=== PATIENT | female | born 1995 | race Caucasian/White ===

== ENCOUNTER 2017-11-22 18:22 | Emergency (ER) | payer OTHER ==
[2017-11-22 18:30] VITALS: PULSE 91; O2SAT 99
[2017-11-22] MEDS ORDERED: TORAdol 30 mg Injection IM ONE (18:56)
--- NOTE | 2017-11-22 18:56 | ERPHSYRPT ---
- History of Present Illness Time Seen by Provider: 11/22/17 18:55 Source: patient, family Exam Limitations: no limitations Patient Subjective Stated Complaint: pt reports pain to upper left arm beginning a few days ago-states that at times pain radiates to upper back and upper chest-states that her bicep feels like a bruis-denies injury or heavy lifting Triage Nursing Assessment: pt pink warm and dry-moving extremity-no bruising noted-radial pulse regular and strong Physician History: The patient is a 24 with her family complaining of pain in her left bicep, left upper back, and left ribs for 3 days. She has no medicines for it except an aspirin. She denies shortness of breath. She denies chest pain. 4 days ago she ran 4 miles for the first time and then the next day it began to hurt. She carries her 3-year-old daughter in her left arm. Her past medical history is significant for possible SVT. Occurred: days ago (3) Method of Injury: unknown Quality: aching Severity of Pain-Max: moderate Severity of Pain-Current: moderate Extremities Pain Location: arm: left Modifying Factors: Improves With: nothing Associated Symptoms: No chest discomfort, No dyspnea, No fever, No jaw pain, No nausea, No sweating, No short of breath, No vomiting Allergies/Adverse Reactions: cefuroxime axetil [From Ceftin] Allergy (Verified 11/22/17 18:25) Home Medications: Amphet Asp/Amphet/D-Amphet [Adderall 30 mg Tablet] 30 mg PO DAILY 11/22/17 [ History] Hx Tetanus, Diphtheria Vaccination/Date Given: No Hx Influenza Vaccination/Date Given: No Hx Pneumococcal Vaccination/Date Given: No Immunizations Up to Date: Yes - Review of Systems Constitutional: No Fever, No Chills Eyes: No Symptoms Ears, Nose, & Throat: No Symptoms Respiratory: No Cough, No Dyspnea Cardiac: No Chest Pain, No Edema, No Syncope Abdominal/Gastrointestinal: No Abdominal Pain, No Nausea, No Vomiting, No Diarrhea Genitourinary Symptoms: No Dysuria Musculoskeletal: Myalgias (left arm) Skin: No Rash Neurological: No Dizziness, No Focal Weakness, No Sensory Changes Psychological: No Symptoms Endocrine: No Symptoms Hematologic/Lymphatic: No Symptoms Immunological/Allergic: No Symptoms All Other Systems: Reviewed and Negative - Past Medical History Pertinent Past Medical History: Yes Cardiac History: Other Other Medical History: TUBAL - HEART MURMUR, 10 sets of tubes in ears , updated 11/27/14 - Past Surgical History Past Surgical History: Yes Other Surgical History: MYRINGOTOMY, tonsilectomy - Social History Smoking Status: Never smoker Exposure to second hand smoke: No Alcohol Use: Socially Drug Use: none Patient Lives Alone: No Significant Family History: no pertinent family hx - Female History Hx Last Menstrual Period: 2 wks ago Hx Now: No - Nursing Vital Signs Nursing Vital Signs: Initial Vital Signs Temperature 98.3 F 11/22/17 18:26 Pulse Rate 91 H 11/22/17 18:26 Respiratory Rate 18 11/22/17 18:26 Blood Pressure 131/81 11/22/17 18:26 O2 Sat by Pulse Oximetry 99 11/22/17 18:26 Pain Scale Pain Intensity 6 - Physical Exam General Appearance: alert Eyes, Ears, Nose, Throat Exam: moist mucous membranes Neck Exam: non-tender, supple Cardiovascular/Respiratory Exam: chest non-tender, normal breath sounds, regular rate/rhythm, no respiratory distress Abdominal Exam: non-tender, No guarding Back Exam: normal inspection, No vertebral tenderness Shoulder Exam: normal ROM, soft tissue tenderness (left trapezius and left bicep ) Elbow/Forearm Exam: normal inspection Wrist Exam: normal inspection Hand Exam: normal inspection Neuro/Tendon Exam: normal sensation, normal motor functions Mental Status Exam: alert, oriented x 3, cooperative Skin Exam: normal color, warm, dry SpO2 Interpretation: normal SpO2: 99 Oxygen Delivery: Room Air - Progress Progress: improved Counseled pt/family regarding: diagnosis - Departure Time of Disposition: 19:04 Departure Disposition: Home Clinical Impression: Myalgia Condition: Stable Critical Care Time: No Referrals: LANA URBINA [Primary Care Provider] - Additional Instructions: You have muscle pain in her left bicep, shoulder, and chest. You were given Toradol 60 mg by IM in the ER. Take Flexeril 10 mg tonight before bedtime. Follow-up with your primary medical doctor next week.
[2017-11-22] MEDS ORDERED: Cyclobenzaprine 10 MG PO ONE (18:57)
[2017-11-22] MEDS ORDERED: Cyclobenzaprine 10 MG ONE (19:04)
[2017-11-22] MEDS ORDERED: TORAdol 30 mg Injection ONE (19:04)
[2017-11-22 19:41] VITALS: BP 137/75
== END 2017-11-22 19:39 | disposition home or self-care (01) ==
LOC: ED 18:22
DX: M79.1 Myalgia (principal); M79.622 Pain in left upper arm; M54.9 Dorsalgia, unspecified; R07.81 Pleurodynia
CPT/HCPCS: 96372; 99284; J1885; A9270-GY

== ENCOUNTER 2018-01-16 23:18 | Emergency (ER) | payer OTHER ==
--- NOTE | 2018-01-17 | ERPHSYRPT ---
- History of Present Illness Time Seen by Provider: 01/16/18 23:59 Source: patient Patient Subjective Stated Complaint: pt states she has been having chest pain for the past week. states pain has increased today. pain was worse in back and was seen at [facility], pain has in chest at this time and pt describes as squeezing Triage Nursing Assessment: pt alert and oriented, answers questions approp. pt arrive per wheelchair, ambulates from wheelchair to stretcher with no difficulty. respirations nonlabored with lungs cta. heart rate 84 on monitor, sinus rhythm. cap refill wnl. Physician History: pt states she has been having chest pain for the past week. states pain has increased today. pain was worse in back and was seen at [facility], pain has in chest at this time and pt describes as squeezing. Patient was at [facility] 6 hrs ago with same complaints. Timing/Duration: week(s) Severity: mild Associated Symptoms: denies symptoms Allergies/Adverse Reactions: cefuroxime axetil [From Ceftin] Allergy (Verified 01/16/18 23:41) Home Medications: Diclofenac Sodium 50 mg [Voltaren 50 mg] 50 mg PO BID 01/16/18 [History] Hx Tetanus, Diphtheria Vaccination/Date Given: Yes Hx Influenza Vaccination/Date Given: No Hx Pneumococcal Vaccination/Date Given: No Immunizations Up to Date: Yes - Review of Systems Constitutional: No Fever, No Chills Eyes: No Symptoms Ears, Nose, & Throat: No Symptoms Respiratory: No Cough, No Dyspnea Cardiac: Chest Pain, No Edema, No Syncope Abdominal/Gastrointestinal: No Abdominal Pain, No Nausea, No Vomiting, No Diarrhea Genitourinary Symptoms: No Dysuria Musculoskeletal: No Back Pain, No Neck Pain Skin: No Rash Neurological: No Dizziness, No Focal Weakness, No Sensory Changes Psychological: No Symptoms Endocrine: No Symptoms All Other Systems: Reviewed and Negative - Past Medical History Pertinent Past Medical History: Yes Cardiac History: Other Other Medical History: TUBAL - HEART MURMUR, 10 sets of tubes in ears , updated 11/27/14 - Past Surgical History Past Surgical History: Yes Other Surgical History: MYRINGOTOMY, tonsilectomy - Social History Smoking Status: Never smoker Exposure to second hand smoke: No Alcohol Use: Socially Drug Use: none Patient Lives Alone: No Significant Family History: no pertinent family hx - Female History Hx Last Menstrual Period: current Hx Now: No - Nursing Vital Signs Nursing Vital Signs: Initial Vital Signs Temperature 97.2 F 01/16/18 23:21 Pulse Rate 74 01/16/18 23:21 Respiratory Rate 18 01/16/18 23:21 Blood Pressure 146/74 01/16/18 23:21 O2 Sat by Pulse Oximetry 99 01/16/18 23:21 Pain Scale Pain Intensity 8 - Physical Exam General Appearance: no apparent distress, alert Eye Exam: PERRL/EOMI, eyes nml inspection Ears, Nose, Throat Exam: normal ENT inspection, TMs normal, pharynx normal, moist mucous membranes Neck Exam: normal inspection, non-tender, supple, full range of motion Respiratory Exam: normal breath sounds, lungs clear, No respiratory distress Cardiovascular Exam: regular rate/rhythm, normal heart sounds, normal peripheral pulses Gastrointestinal/Abdomen Exam: soft, normal bowel sounds, No tenderness, No mass Back Exam: normal inspection, normal range of motion, No CVA tenderness, No vertebral tenderness Extremity Exam: normal inspection, normal range of motion, pelvis stable Neurologic Exam: alert, oriented x 3, cooperative, normal mood/affect, nml cerebellar function, nml station & gait, sensation nml, No motor deficits Skin Exam: normal color, warm, dry, No rash Lymphatic Exam: No adenopathy SpO2: 99 Oxygen Delivery: Room Air - Course Nursing assessment & vital signs reviewed: Yes EKG Interpreted by Me: Sinus Rhythm - Progress Progress: improved Counseled pt/family regarding: lab results (d/w patient (done at [facility])), diagnosis, need for follow-up, rad results - Departure Time of Disposition: 00:19 Departure Disposition: Home Clinical Impression: Chest pain due to psychological stress, Tingling of left upper extremity Condition: Stable Critical Care Time: No Referrals: LANA URBINA [Primary Care Provider] - Instructions: Atypical Chest Pain Additional Instructions: Your chest pain, appears to be secondary to possible pinched nerve in your neck , which should be followed up as an outpatient with further more testing as per , your primary care physician. Followup with your primary care physician for further investigation. Her chest pain, appears to be noncardiac. According to the all laboratory data, which were done at other hospital. Your electrocardiogram at [facility] appears to be within normal range, and appears to be same as was done at another hospital. Followup with your primary care physician on Friday for further testing.
[2018-01-17] MEDS ORDERED: Ativan 2 MG/1 ML VIAL ONE (00:18)
[2018-01-17] MEDS ORDERED: Ativan 2 MG/1 ML VIAL IM ONE (00:18)
[2018-01-17 00:35] VITALS: BP 132/85; PULSE 76; O2SAT 100
== END 2018-01-17 00:36 | disposition home or self-care (01) ==
LOC: ED 23:18
DX: F43.9 Reaction to severe stress, unspecified (principal); R07.9 Chest pain, unspecified; R20.2 Paresthesia of skin
CPT/HCPCS: 96372; 99283; J2060

== ENCOUNTER 2021-08-03 22:16 | Emergency (ER) | payer OTHER ==
[2021-08-03 22:49] VITALS: O2SAT 99
[2021-08-03 23:04] LABS: Absolute Neutrophil Ct (ANC) 5.67 (1.4-6.9); Basophil (Absolute #) 0.03 (0-0.4); Eosinophil % 2.6 % (0.00-5.0); Eosinophil (Absolute #) 0.22 (0-0.5); Hematocrit 36.5 % (35-47); Hemoglobin 12.4 gm/dl (12.0-16.0); Lymphocyte (Absolute #) 1.97 (1.0-4.6); Mean Cell Volume 95.3 fl (78-100); Mean Corpuscular Hemoglobin 32.4 pg (26-32); Monocyte (Absolute #) 0.68 (0.0-1.3); Monocytes % 7.9 % (0.0-12.0); Neutrophil % 66.1 % (36.0-66.0); Platelet Count 197 K/mm3 (150-450); Red Blood Count 3.83 M/mm3 (4.1-5.4); Red Cell Distribution Width 12.2 % (11.5-14.0); White Blood Count 8.6 K/mm3 (4.0-10.5)
[2021-08-03 23:06] LABS: INR 1.05 (0.8-3.0); PROTIME 12.4 SECONDS (9.4-12.5)
--- NOTE | 2021-08-03 23:17 | ERPHSYRPT ---
- History of Present Illness Historian: patient Exam Limitations: no limitations Patient Subjective Stated Complaint: pt states she has been having palpitations with some chest pressure all day. has had multiple episodes where she feels like she needs to bear down to get her heart back in rhythm. Triage Nursing Assessment: pt alert and oriented, answers questions approp. pt ambulatory with steady gait noted. skin warm and dry. respirations nonlabored with lungs cta. heart rate 74 on monitor, sinus rhythm. peripheral pulse wnl. 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 Pt has a h/o palatations since the age of 10 and has had a cardiac w/u in the past including holter/echo. She was taking Lopressor until 2019. Pt states that she was mildly dyspneic w mild mid-sternal chest pain. She denies N/V/diaphoresis. Pt denies HTN/DM/tobacco use/meth-cocaine use Timing/Duration: other (12:00) Activities at Onset: other (Cutting hair) Location: substernal Chest Pain Radiation: no radiation Severity of Pain-Max: mild Severity of Pain-Current: mild Modifying Factors: Improves With: nothing Associated Symptoms: shortness of breath, No nausea, No vomiting, No palpitations, No heartburn, No abdominal pain, No cough, No hurts to breathe, No diaphoresis, No chills, No fever, No fatigue, No weakness, No swelling/lump in chest, No syncope, No rash, No headache, No dizziness, No edema, No back pain Prior Chest Pain/Cardiac Workup: echocardiography (Holter monitor) Nitro Today/Relief: no nitro taken today Aspirin Treatment Today: no aspirin today Allergies/Adverse Reactions: cefuroxime axetil [From Ceftin] Allergy (Verified 08/04/21 00:29) Home Medications: No Reportable Medications [No Reported Medications] 08/04/21 [History] Hx Tetanus, Diphtheria Vaccination/Date Given: Yes Hx Influenza Vaccination/Date Given: No Hx Pneumococcal Vaccination/Date Given: No Immunizations Up to Date: Yes Travel Risk - International Travel Have you traveled outside of the country in past 3 weeks: No - Coronavirus Screening Are you exhibiting any of the following symptoms?: No Close contact with a COVID-19 positive Pt in past 14-21 Days: No - Vaccine Status Have you recieved a Covid-19 vaccination: No - Review of Systems Constitutional: No Symptoms Eyes: No Symptoms Ears, Nose, & Throat: No Symptoms Respiratory: No Symptoms, Dyspnea Cardiac: No Symptoms, Chest Pain, Palpitations Abdominal/Gastrointestinal: No Symptoms Genitourinary Symptoms: No Symptoms Musculoskeletal: No Symptoms Skin: No Symptoms Neurological: No Symptoms Psychological: No Symptoms Endocrine: No Symptoms Hematologic/Lymphatic: No Symptoms Immunological/Allergic: No Symptoms - Past Medical History Pertinent Past Medical History: Yes Neurological History: No Pertinent History ENT History: No Pertinent History Cardiac History: Arrhythmia, High Cholesterol, Other Respiratory History: No Pertinent History Endocrine Medical History: No Pertinent History Musculoskeletal History: No Pertinent History GI Medical History: No Pertinent History History: No Pertinent History Psycho-Social History: No Pertinent History Female Reproductive Disorders: No Pertinent History Other Medical History: TUBAL - HEART MURMUR, 10 sets of tubes in ears - Past Surgical History Past Surgical History: Yes Neuro Surgical History: No Pertinent History Cardiac: No Pertinent History Respiratory: No Pertinent History Gastrointestinal: No Pertinent History Genitourinary: No Pertinent History Musculoskeletal: No Pertinent History Female Surgical History: No Pertinent History Other Surgical History: MYRINGOTOMY, tonsilectomy - Social History Smoking Status: Never smoker Exposure to second hand smoke: No Alcohol Use: Socially Drug Use: none Patient Lives Alone: No Significant Family History: no pertinent family hx - Female History Hx Last Menstrual Period: minimal with iud Hx Now: No - Nursing Vital Signs Nursing Vital Signs: Initial Vital Signs Temperature 97.4 F 08/03/21 22:26 Pulse Rate 73 08/03/21 22:26 Respiratory Rate 16 08/03/21 22:26 Blood Pressure 124/85 08/03/21 22:26 O2 Sat by Pulse Oximetry 99 08/03/21 22:26 Pain Scale Pain Intensity 0 - Physical Exam General Appearance: no apparent distress, anxiety Eye Exam: PERRL/EOMI, eyes nml inspection Ears, Nose, Throat Exam: normal ENT inspection, TMs normal, pharynx normal, moist mucous membranes Neck Exam: normal inspection, non-tender, supple, full range of motion, No meningismus, No mass, No Brudzinski, No Kernig's, No carotid bruit Respiratory Exam: normal breath sounds, lungs clear, airway intact Cardiovascular Exam: regular rate/rhythm, normal heart sounds, normal peripheral pulses, capillary refill <2 sec, No murmur Gastrointestinal/Abdomen Exam: soft, normal bowel sounds, No tenderness Back Exam: normal inspection, normal range of motion, No CVA tenderness, No vertebral tenderness Extremity Exam: normal inspection, normal range of motion Neurologic Exam: alert, oriented x 3, cooperative, surgical elastic knitter II-XII nml as tested, normal mood/affect, nml cerebellar function, nml station & gait, sensation nml, No motor deficits, No sensory deficit Skin Exam: normal color, warm, dry Lymphatic Exam: No adenopathy SpO2 Interpretation: normal SpO2: 99 O2 Delivery: Room Air - Course EKG Interpreted by Me: RATE (Sinus chris/Rate 58/Normal QT-QTc/No acute ST-Twave changes) - Radiology Exams Chest X-ray Interpretation: Interpreted by me (CXR NAD) Ordered Tests: Active Orders 24 hr Category Date Time Status Supplier Quality STAT Care 08/03/21 22:56 Completed EKG-ER Only STAT Care 08/03/21 22:56 Completed IV Insertion STAT Care 08/03/21 22:43 Completed CHEST 1 VIEW (PORTABLE) Stat Exams 08/03/21 23:53 Taken CBC W DIFF Stat Lab 08/03/21 22:56 Completed CMP Stat Lab 08/03/21 22:56 Completed PROTIME WITH INR Stat Lab 08/03/21 22:56 Completed PTT Stat Lab 08/03/21 22:56 Completed T4 (Thyroxine) Stat Lab 08/03/21 22:56 Completed TROPONIN Stat Lab 08/03/21 22:56 Completed TSH, 3RD Generation Stat Lab 08/03/21 22:56 Completed Holter Monitor ONCE RT 08/04/21 01:11 Completed Lab/Rad Data: Laboratory Result Diagrams 08/03/21 22:56 08/03/21 22:56 Laboratory Results 08/03/21 08/03/21 08/03/21 Range/Units 22:56 22:56 22:56 WBC 8.6 (4.0-10.5) K/mm3 RBC 3.83 L (4.1-5.4) M/mm3 Hgb 12.4 (12.0-16.0) gm/dl Hct 36.5 (35-47) % MCV 95.3 (78-100) fl MCH 32.4 H (26-32) pg MCHC 34.0 (32-36) g/dl RDW 12.2 (11.5-14.0) % Plt Count 197 (150-450) K/mm3 MPV 11.0 (7.5-11.0) fl Gran % 66.1 H (36.0-66.0) % Eos # (Auto) 0.22 (0-0.5) Absolute Lymphs (auto) 1.97 (1.0-4.6) Absolute Monos (auto) 0.68 (0.0-1.3) Lymphocytes % 23.0 L (24.0-44.0) % Monocytes % 7.9 (0.0-12.0) % Eosinophils % 2.6 (0.00-5.0) % Basophils % 0.4 (0.0-0.4) % Absolute Granulocytes 5.67 (1.4-6.9) Basophils # 0.03 (0-0.4) PT 12.4 (9.4-12.5) SECONDS INR 1.05 (0.8-3.0) APTT 32.0 (25.1-36.5) SECONDS Sodium 138 (137-145) mmol/L Potassium 4.0 (3.5-5.1) mmol/L Chloride 104 (98-107) mmol/L Carbon Dioxide 25 (22-30) mmol/L Anion Gap 13.5 (5-15) MEQ/L BUN 15 (7-17) mg/dL Creatinine 0.77 (0.52-1.04) mg/dL Estimated GFR > 60.0 ML/MIN Glucose 76 (74-106) mg/dL Calcium 9.4 (8.4-10.2) mg/dL Total Bilirubin 0.40 (0.2-1.3) mg/dL AST 24 (14-36) U/L ALT 13 (0-35) U/L Alkaline Phosphatase 39 (38-126) U/L Troponin I < 0.012 (0.000-0.034) ng/mL Serum Total Protein 7.2 (6.3-8.2) g/dL Albumin 4.4 (3.5-5.0) g/dL Thyroxine (T4) 6.86 (5.53-10.96) ug/dL TSH 3rd Generation 1.420 (0.47-4.68) mIU/L - Progress Progress Note: 08/04/21 00:42 Holter monitor placed No chest pain in ER Heart score 0 Only 1 PAC observed on Monitor during stay 08/04/21 04:08 Counseled pt/family regarding: lab results, diagnosis, need for follow-up, rad results - Departure Departure Disposition: Home Clinical Impression: Palpitations Condition: Stable Critical Care Time: No Referrals: MERLYN FUNES [Primary Care Provider] - Follow up/PCP as directed Instructions: Palpitations (DC) Additional Instructions: Follow up with your family MD Return to ER for increasing chest pain, shortness of breath, or persistent palpatations
[2021-08-03 23:29] LABS: ALBUMIN 4.4 g/dL (3.5-5.0); ALKALINE PHOSPHATASE 39 U/L (38-126); ANION GAP 13.5 MEQ/L (5-15); BLOOD UREA NITROGEN 15 mg/dL (7-17); CHLORIDE 104 mmol/L (98-107); Calcium 9.4 mg/dL (8.4-10.2); Carbon Dioxide 25 mmol/L (22-30); Creatinine 1 0.77 mg/dL (0.52-1.04); EST GLOMERULAR FILTRATION RATE > 60.0 ML/MIN; Glucose 76 mg/dL (74-106); SGOT/AST 24 U/L (14-36); SGPT/ALT 13 U/L (0-35); SODIUM 138 mmol/L (137-145); T4 (Thyroxine) 6.86 ug/dL (5.53-10.96); TROPONIN < 0.012 ng/mL (0.000-0.034); Total Protein 7.2 g/dL (6.3-8.2)
[2021-08-04 00:55] VITALS: BP 120/68; PULSE 72
--- NOTE | 2021-08-06 15:30 | XRAY ---
Indication: Palpitations. Comparison: March 17, 2018. Portable chest again demonstrates normal heart and lungs. Bony thorax intact again with minimal dextroscoliosis. No new/acute findings.
== END 2021-08-04 00:54 | disposition home or self-care (01) ==
LOC: ED 22:16
DX: R00.2 Palpitations (principal); R06.00 Dyspnea, unspecified; R07.9 Chest pain, unspecified
CPT/HCPCS: 36000; 36415; 71045; 80053; 84436; 84443; 84484; 85025; 85610; 85730; 93005; 93041; 93225; 99284

== ENCOUNTER 2024-08-19 10:11 | Emergency (ER) | payer OTHER ==
[2024-08-19 10:32] VITALS: TEMP 96.6
--- NOTE | 2024-08-19 10:45 | ERPHSYRPT ---
- History of Present Illness Time Seen by Provider: 08/19/24 10:40 Source: patient Exam Limitations: no limitations Patient Subjective Stated Complaint: pt c/o of greer lower back pain that radiates around to her greer lower abdomen, pt reports starting her control 3 days early today and unsure if the abdominal pain is cramping or not Triage Nursing Assessment: Pt brought self to the ER, hypertensive, rates pain as 7/10, pulses normal, skin n/w/d, denies back injury, denies chest pain, denies difficulty breathing, doesn't appear to be in any distress Physician History: Patient is a 29-year-old female presents to our ED for evaluation of lumbar spine pain. Patient states the pain started this morning. Pain tends to radiate anteriorly into her abdominal region. No trauma no fever. Patient concerned that her pain may be secondary to her control. Back pain worse with movement and palpation. Pain improved with rest. Patient voices no other complaints or concerns at this time. Patient declined pain medication No lower extremity numbness tingling or weakness. No change in bowel bladder function. No saddle anesthesia. Portions of this note were created with voice recognition technology. There may be grammatical, spelling, punctuation or sound alike errors Timing/Duration: today Method of Injury: unknown Quality: aching Back Pain Location: lumbar spine Severity of Pain-Max: moderate Severity of Pain-Current: mild Modifying Factors: Improves With: movement (Pain worse when she leans forward. Pain improves when she sits upright) Associated Symptoms: denies symptoms Previous symptoms: no prior history Allergies/Adverse Reactions: cefuroxime axetil [From Ceftin] Allergy (Verified 08/19/24 10:32) Home Medications: Dextroamphetamine/Amphetamine [Dextroamp-Amphetamin 20 mg Tab] 20 mg PO DAILY 08/19/24 [History] Ethinyl Estradiol/Drospirenone [Loryna 3 mg-0.02 mg Tablet] 1 each PO DAILY 08/19/24 [History] Hx Tetanus, Diphtheria Vaccination/Date Given: Yes Hx Influenza Vaccination/Date Given: No Hx Pneumococcal Vaccination/Date Given: No Travel Risk - International Travel Have you traveled outside of the country in past 3 weeks: No - Emerging Infectious Disease Are you exhibiting symptoms associated with any current EIDs: Yes Symptoms: Abdominal Pain - Review of Systems Constitutional: No Symptoms, No Fever, No Chills Eyes: No Symptoms Ears, Nose, & Throat: No Symptoms Respiratory: No Symptoms, No Cough, No Dyspnea Cardiac: No Symptoms, No Chest Pain, No Edema, No Syncope Abdominal/Gastrointestinal: No Symptoms, No Abdominal Pain, No Nausea, No Vomiting, No Diarrhea Genitourinary Symptoms: No Symptoms, No Dysuria Musculoskeletal: No Symptoms, No Back Pain, No Neck Pain Skin: No Symptoms, No Rash Neurological: No Symptoms, No Dizziness, No Focal Weakness, No Sensory Changes Psychological: No Symptoms Endocrine: No Symptoms Hematologic/Lymphatic: No Symptoms Immunological/Allergic: No Symptoms All Other Systems: Reviewed and Negative - Past Medical History Pertinent Past Medical History: Yes Neurological History: No Pertinent History ENT History: No Pertinent History Cardiac History: Arrhythmia, High Cholesterol, Other Respiratory History: No Pertinent History Endocrine Medical History: No Pertinent History Musculoskeletal History: No Pertinent History GI Medical History: No Pertinent History History: No Pertinent History Psycho-Social History: No Pertinent History Female Reproductive Disorders: No Pertinent History Other Medical History: TUBAL - HEART MURMUR, 10 sets of tubes in ears - Past Surgical History Past Surgical History: Yes Neuro Surgical History: No Pertinent History Cardiac: No Pertinent History Respiratory: No Pertinent History Gastrointestinal: No Pertinent History Genitourinary: No Pertinent History Musculoskeletal: No Pertinent History Female Surgical History: No Pertinent History Other Surgical History: MYRINGOTOMY, tonsilectomy Significant Family History: no pertinent family hx - Female History Hx Last Menstrual Period: unknown Hx Now: No - Social History Smoking Status: Current every day smoker How long have you smoked: vape Exposure to second hand smoke: No Drug Use: none - Social Determinants of Health Will the patient participate in the screening: Yes Do you worry about a steady place to live?: No Do you have any problems with any of the following?: No known problems In the past 12 months,have you had to go without utilities?: No Transportation Issues: No Has anyone in your support network made you feel unsafe?: No Have you or anyone in your house had to go w/o enough food: No - Nursing Vital Signs Nursing Vital Signs: Initial Vital Signs Temperature 96.6 F 08/19/24 10:21 Pulse Rate 72 08/19/24 10:21 Blood Pressure 152/94 08/19/24 10:21 O2 Sat by Pulse Oximetry 98 08/19/24 10:21 Pain Scale Pain Intensity [] 7 Pain Intensity 7 - Physical Exam General Appearance: no apparent distress, alert Eye Exam: PERRL/EOMI, eyes nml inspection Neck Exam: normal inspection, full range of motion, No meningismus, No midline tenderness Respiratory Exam: normal breath sounds, lungs clear, No respiratory distress Cardiovascular Exam: regular rate/rhythm, normal heart sounds Gastrointestinal Exam: soft, No tenderness, No mass Back Exam: other (Tenderness to palpation lumbar spine. Pain is mostly lumbar paraspinal however across his midline.) Extremity Exam: normal inspection, normal range of motion, No calf tenderness, No pedal edema Neurologic Exam: alert, oriented x 3, cooperative, health care sanitary technician II-XII nml as tested, normal mood/affect, sensation nml, No motor deficits Skin Exam: normal color, warm, dry, No rash Lymphatic Exam: No adenopathy SpO2 Interpretation: normal SpO2: 98 O2 Delivery: Room Air - CT Exams Abdomen/Pelvis CT Interpretation: Tele-radiologist Report (Levoscoliosis. Otherwise no acute intracranial pathology CT abdomen pelvis) Other CT Interpretation: Tele-radiologist Report (CT lumbar spine, reconstruction views show levoscoliosis otherwise no acute findings) Ordered Tests: Active Orders 24 hr Category Date Time Status ABDOMEN AND PELVIS W/0 CONTRAS [CT] Stat Exams 08/19/24 10:34 Completed RECONSTRUCTION [CT] Stat Exams 08/19/24 10:36 Completed UA W/RFX UR CULTURE Stat Lab 08/19/24 12:23 Completed Lab/Rad Data: Laboratory Results 08/19/24 Range/Units 12:23 Urine Color Yellow (Yellow) Urine Appearance Clear (Clear) Urine pH 7.5 (4.6-8.0) Ur Specific Deloit <=1.005 (1.005-1.030) Urine Protein Negative (Negative) Urine Glucose (UA) Negative (Negative) mg/dL Urine Ketones Negative (Negative) Urine Blood Negative (Negative) Urine Nitrite Negative (Negative) Urine Bilirubin Negative (Negative) Urine Urobilinogen 0.2 (0.2) mg/dL Ur Leukocyte Esterase Negative (Negative) U Hyaline Cast (Auto) NONE SEEN (0-2) /LPF Urine Microscopic RBC 0-2 (0-5) /HPF Urine Microscopic WBC 0-2 (0-5) /HPF Ur Epithelial Cells None Seen (None Seen) /HPF Urine Bacteria None Seen (None Seen) /HPF Urine Culture Reflexed NO (NO) - Progress Progress: improved Progress Note: 29-year-old female no significant past medical history presents to our ED for evaluation of low back pain radiating to her abdomen. Physical exam reveals some tenderness to palpation at the lumbar paraspinal musculature. Pain worse with movement and palpation. CT abdomen pelvis negative for acute intra- abdominal pathology. CT lumbar spine shows a levoscoliosis otherwise negative for fracture or dislocation. Patient declined pain medication. UA negative for UTI. No indication for further workup at this time will discharge home. Patient agrees to follow-up with primary care doctor within 48 hours for reevaluation. Portions of this note were created with voice recognition technology. There may be grammatical, spelling, punctuation or sound alike errors Complexity of problem addressed is moderate acute complicated. No critical care time. Complex of data reviewed and analyzed as moderate. Test ordered test reviewed results analyzed and correlated clinically with history and physical exam. Risk of complication and or risk of morbidity/mortality of patient management is low. Vital stable. Time spent to discharge patient is approximately 15 minutes. Plan of care established for shared decision making. No social determinants of health present to impede follow-up. Portions of this note were created with voice recognition technology. There may be grammatical, spelling, punctuation or sound alike errors 08/19/24 12:29 Counseled pt/family regarding: diagnosis, need for follow-up, rad results - Departure Departure Disposition: Home Clinical Impression: Lumbosacral strain, Abdominal pain Condition: Stable Critical Care Time: No Referrals: LANA URBINA [Primary Care Provider, [facility]] - Follow up/PCP as directed Additional Instructions: Discharge/Care Plan JACOBONOAH RAYMOND was seen on 08/19/24 in the Emergency Room. The patient was counseled regarding Diagnosis,Lab results, Imaging studies, need for follow up and when to return to the Emergency Room. Prescriptions given: Discharge Note I have spoken with the patient and/or caregivers. I have explained the patient's condition, diagnosis and treatment plan based on the information available to me at this time. I have answered the patient's and/or caregiver's questions and addressed any concerns. The patient and/or caregivers have as good understanding of the patient's diagnosis, condition and treatment plan as can be expected at this point. The vital signs have been stable. The patient's condition is stable and appropriate for discharge from the emergency department. The patient will pursue further outpatient evaluation with the primary care physician or other designated or consulting physician as outlined in the discharge instructions. The patient and/or caregivers are agreeable to this plan of care and follow-up instructions have been explained in detail. The patient and/or caregivers have received these instruction. The patient/and or caregivers are aware that any significant change in condition or worsening of symptoms should prompt an immediate return to this or the closest emergency department or call 911.
[2024-08-19 11:15] VITALS: PULSE 80
--- NOTE | 2024-08-19 12:10 | XRAY ---
Indication: Pain. Multiple contiguous axial images obtained through the abdomen and pelvis without contrast. Comparison: September 18, 2018 Lung bases remain clear. Heart not enlarged. Noncontrasted stomach and bowel loops appear nonobstructed with normal appendix. No free fluid/air. Remaining liver, gallbladder, pancreas, spleen, adrenal glands, kidneys, ureters, bladder, uterus, and aorta are unremarkable for noncontrast exam. Osseous structures intact again with mild levoscoliosis centered at L3. Impression: Stable lumbar levoscoliosis. Remaining CT abdomen/pelvis without contrast exam continues to be normal.
--- NOTE | 2024-08-19 12:13 | XRAY ---
Indication: Pain. Sagittal, coronal, and axial reformatted images lumbar spine obtained using raw data from same day CT abdomen/pelvis exam. Comparison: September 18, 2018 Axial images negative for acute fracture, suspicious bony lesions, or spinal canal stenosis. Facets are symmetric. Sagittal and coronal reformatted images demonstrates stable mild levoscoliosis centered at L3. Vertebral body heights lysis space maintained. CT abdomen/pelvis reported separately. Impression: Stable levoscoliosis. Remaining CT lumbar spine continues to be normal.
[2024-08-19 12:18] VITALS: O2SAT 98
[2024-08-19 12:31] VITALS: BP 133/81
[2024-08-19 12:33] LABS: Appearance Clear (Clear); Bacteria None Seen /HPF (None Seen); Bilirubin Negative (Negative); Blood Negative (Negative); Epithelial Cells None Seen /HPF (None Seen); Glucose, Urine Negative (Negative); Hyaline Casts NONE SEEN /LPF (0-2); Ketones Negative (Negative); Leukocyte Esterase Negative (Negative); Nitrite Negative (Negative); Ph 7.5 (4.6-8.0); Protein,Urine Dip Negative (Negative); RBC 0-2 /HPF (0-5); Specific Gravity <=1.005 (1.005-1.030); Urobilinogen 0.2 mg/dL (0.2); WBC 0-2 /HPF (0-5)
== END 2024-08-19 12:52 | disposition home or self-care (01) ==
LOC: ED 10:11
DX: S39.012A Strain of muscle, fascia and tendon of lower back, initial encounter (principal); R10.9 Unspecified abdominal pain; Z79.899 Other long term (current) drug therapy; Z72.0 Tobacco use
CPT/HCPCS: 74176; 76376; 81001; 99284